=== PATIENT | female | born 1950 | race Caucasian/White ===

== ENCOUNTER 2016-07-29 07:14 | Emergency (ER) | payer OTHER ==
[~2016-07-29] VITALS: Wt 53.0 kg
[~2016-07-29 07:14] MED LIST: AMO500 PO; D-ME473S18 PO; FLUC150T17 PO; HYDR-762 PO; IBUP-1542 PO; IBUP400T22 PO; METH-70 PO; ONDA4TAB35 PO; TRAM-40 PO
--- NOTE | 2016-07-29 07:39 | ERD ---
ER Documentation Chief Complaint Date/Time DATE: 07/29/16 TIME: 07:35 Chief Complaint dysuria and burning for the past 2 days. no distress. no n/v. HPI 66-year-old female comes in with painful urination and urgency for the past 2 days.She states that she has body aches, however no fevers, chills, nausea or vomiting. She denies abdominal pain. ROS All systems reviewed and are negative except as per history of present illness. Medications Home Meds Active Scripts Cephalexin* (Keflex*) 500 Mg Capsule, 500 MG PO TID for 7 Days, CAP Prov:AMY PHILLIPS PA-C 07/29/16 Dextromethorphan Hb-Promethazine Hcl (Promethazine DM Syrup) 473 Ml Syrup, 5 ML PO Q6H Y for COUGH, #4 OZ Prov:CAMILLA CAICEDO MD 03/13/16 Amoxicillin* (Amoxicillin*) 500 Mg Cap, 500 MG PO TID for 10 Days, CAP Prov:CAMILLA CAICEDO MD 03/13/16 Ibuprofen* (Motrin*) 400 Mg Tab, 400 MG PO Q6, #15 TAB Prov:CAMILLA CAICEDO MD 03/13/16 Ondansetron Hcl* (Zofran* ODT) 4 mg -ODT Tab.disper, 4 MG PO Q4H Y for NAUSEA AND OR VOMITING, #10 TAB Prov:ZAHIRA POWERS DO 09/12/15 Ibuprofen* (Motrin*) 600 Mg Tab, 600 MG PO TID, #30 TAB Prov:ELMER POWERSSTSAÚLS ANawaf DO 09/12/15 Methocarbamol* (Robaxin*) 750 Mg Tablet, 750 MG PO TID, #30 TAB Prov:ELMER POWERSSTOLOS ANawaf DO 09/12/15 Hydrocodone Bit-Acetaminophen* ([place]*) 10-325 Mg Tablet, 1 TAB PO Q6 Y for PAIN , #10 TAB Prov:ZAHIRA POWERS DO 09/12/15 Fluconazole* (Diflucan*) 150 Mg Tablet, 150 MG PO ONCE, #1 TAB Prov:CAMILLA CAICEDO MD 08/11/15 Tramadol Hcl* (Ultram*) 50 Mg Tablet, 50 MG PO Q6H Y for PAIN, #14 TAB Prov:CAMILLA CAICEDO MD 08/11/15 Ibuprofen* (Motrin*) 600 Mg Tab, 600 MG PO Q6, #20 TAB Prov:CAMILLA CAICEDO MD 08/11/15 Allergies Allergies: Coded Allergies: No Known Allergy (Unverified , 07/29/16) PMhx/Soc Medical and Surgical Hx: pt denies Medical Hx History of Surgery: Yes (GALLBLADDER REMOVED, HYSTERECTOMY) Anesthesia Reaction: No Hx Neurological Disorder: No Hx Respiratory Disorders: No Hx Cardiac Disorders: No Hx Psychiatric Problems: No Hx Miscellaneous Medical Probl: No Hx Alcohol Use: No Hx Substance Use: No Hx Tobacco Use: No Smoking Status: Never smoker Physical Exam Vitals Vital Signs Date Time Temp Pulse Resp B/P Pulse Ox O2 Delivery O2 Flow Rate FiO2 07/29/16 07:19 98.1 67 21 150/84 98 Physical Exam General: Well-developed, well-nourished. The patient appears in no acute distress. HEENT: Head is normocephalic, atraumatic. No scleral icterus. Neck: Supple. Nontender. Lungs: Clear to auscultation. Normal air movement. Heart: Regular rate and rhythm. S1 and S2 are normal. No murmurs, gallops, or rubs. Abdomen: Soft, nontender, nondistended. Bowel sounds are normoactive. Extremities: No clubbing or cyanosis. Normal pulses. Moving extremities x 4. No weakness. Neurologic: Alert and oriented 3. No focal deficits. Skin: Normal turgor. No rash or lesions. Results 24 hrs Laboratory Tests Test 07/29/16 07:54 Bedside Urine Blood Trace-lysed Bedside Urine Glucose (UA) Negative Bedside Urine Ketones (LAB) Negative Bedside Urine Leukocyte Esterase (L Trace Bedside Urine Nitrite (LAB) Negative Bedside Urine Protein (LAB) Negative Bedside Urine pH (LAB) 5.5 Procedures/MDM 66-year-old female presents with painful urination and urgency for the past 3 days, consistent with a lower urinary tract infection. Patient's abdominal examination is benign, she does not have any history of fever or vomiting to indicate signs of pyelonephritis. She is a well-appearing patient, no signs of sepsis, dehydration, kidney stones, she will be discharged home with oral antibiotics. Patient's blood pressure was elevated (>120/80) but appears stable without evidence of hypertension emergency or urgency. The patient was counseled about the risks of hypertension and urged to pursue outpatient monitoring and therapy within a week with their primary care physician. Departure Diagnosis: Primary Impression: UTI (urinary tract infection) Condition: AMY Puri PA-C Jul 29, 2016 07:39
[2016-07-29 07:51] LABS: URINE BLOOD (Dip) POC Trace-lysed (NEGATIVE)
[2016-07-29] MEDS ORDERED: CEPH-443 PO (07:54)
== END 2016-07-29 08:00 | disposition home or self-care (01) ==
LOC: FTE 07:14
DX: N39.0 Urinary tract infection, site not specified (principal)
CPT/HCPCS: 81003; Z7502; 99283

== ENCOUNTER 2016-08-03 22:35 | Emergency (ER) | payer MEDICAID, OTHER ==
[~2016-08-03] VITALS: Ht 152.4 cm; Wt 54.8 kg
[~2016-08-03 22:35] MED LIST changes: +CEPH-443 PO
[2016-08-03 22:38] VITALS: Ht 152.4 cm; Wt 54.8 kg
[2016-08-04] MEDS ORDERED: SOD CHLORIDE 0.9% 1,000 ML IV STA (00:17)
[2016-08-04] MEDS ORDERED: ONDANSETRON 4 MG INJ IV STA (00:17)
--- NOTE | 2016-08-04 01:13 | ERD ---
ER Documentation Chief Complaint Date/Time DATE: 08/04/16 TIME: 01:12 Chief Complaint PUT ON KEFLEX FOR UTI BUT INCREASED SUPRAPUBIC AND FLANK PAIN HPI 66-year-old female presents here in emergency department for complaints of low abdominal pain and bilateral flank pain for 10 days. Patient was seen here 4 days ago, was diagnosed of a urinary tract infection, is taking Keflex, continue stop the pain. Patient denies that the pain as sharp pain, 6/10 scale, is also complaining of bilateral flank pain. Patient denies any vomiting and fever but is complaining of nausea. Patient denies any blood in the stool or black stool. Patient denies any diarrhea or constipation. Patient denies any blood in the urine. Patient states that the dysuria has resolved. ROS All systems reviewed and are negative except as per history of present illness. Medications Home Meds Active Scripts Cephalexin* (Keflex*) 500 Mg Capsule, 500 MG PO TID for 7 Days, CAP Prov:AMY PHILLIPS PA-C 07/29/16 Dextromethorphan Hb-Promethazine Hcl (Promethazine DM Syrup) 473 Ml Syrup, 5 ML PO Q6H Y for COUGH, #4 OZ Prov:CAMILLA CAICEDO MD 03/13/16 Amoxicillin* (Amoxicillin*) 500 Mg Cap, 500 MG PO TID for 10 Days, CAP Prov:CAMILLA CAICEDO MD 03/13/16 Ibuprofen* (Motrin*) 400 Mg Tab, 400 MG PO Q6, #15 TAB Prov:CAMILLA CAICEDO MD 03/13/16 Ondansetron Hcl* (Zofran* ODT) 4 mg -ODT Tab.disper, 4 MG PO Q4H Y for NAUSEA AND OR VOMITING, #10 TAB Prov:ZAHIRA POWERS ANawaf DO 09/12/15 Ibuprofen* (Motrin*) 600 Mg Tab, 600 MG PO TID, #30 TAB Prov:ELMER POWERSSTSAÚLS A. DO 09/12/15 Methocarbamol* (Robaxin*) 750 Mg Tablet, 750 MG PO TID, #30 TAB Prov:ELMER POWERSSTSAÚLS ANawaf DO 09/12/15 Hydrocodone Bit-Acetaminophen* ([place]*) 10-325 Mg Tablet, 1 TAB PO Q6 Y for PAIN , #10 TAB Prov:ZAHIRA POWERS DO 09/12/15 Fluconazole* (Diflucan*) 150 Mg Tablet, 150 MG PO ONCE, #1 TAB Prov:CAMILLA CAICEDO MD 08/11/15 Tramadol Hcl* (Ultram*) 50 Mg Tablet, 50 MG PO Q6H Y for PAIN, #14 TAB Prov:CAMILLA CAICEDO MD 08/11/15 Ibuprofen* (Motrin*) 600 Mg Tab, 600 MG PO Q6, #20 TAB Prov:CAMILLA CAICEDO MD 08/11/15 Allergies Allergies: Coded Allergies: No Known Allergy (Unverified , 07/29/16) PMhx/Soc History of Surgery: Yes (GALLBLADDER REMOVED, HYSTERECTOMY) Anesthesia Reaction: No Hx Neurological Disorder: No Hx Respiratory Disorders: No Hx Cardiac Disorders: No Hx Psychiatric Problems: No Hx Miscellaneous Medical Probl: No Hx Alcohol Use: No Hx Substance Use: No Hx Tobacco Use: No Smoking Status: Never smoker FmHx Family History: diabetes Physical Exam Vitals Vital Signs Date Time Temp Pulse Resp B/P Pulse Ox O2 Delivery O2 Flow Rate FiO2 08/03/16 22:38 95.7 76 16 142/63 97 Physical Exam GENERAL: The patient is well developed and appropriate for usual state of health, in no apparent distress. CHEST: Clear to auscultation bilaterally. There are no rales, wheezes or rhonchi. HEART: Regular rate and rhythm. No murmurs, clicks, rubs or gallops. No S3 or S4. ABDOMEN: Soft, nontender and nondistended. Good bowel sounds. No rebound or guarding. No gross peritonitis. No gross organomegaly or masses. No Reese sign or McBurney point tenderness. BACK: No midline or flank tenderness. EXTREMITIES: Equal pulses bilaterally. There is no peripheral clubbing, cyanosis or edema. No focal swelling or erythema. Full range of motion. Grossly neurovascularly intact. NEURO: Alert and oriented. Cranial nerves 2-12 intact. Motor strength in all 4 extremities with 5/5 strength. Sensation grossly intact. Normal speech and gait. SKIN: There is no apparent rash or petechia. The skin is warm and dry. HEMATOLOGIC AND LYMPHATIC: There is no evidence of excessive bruising or lymphedema. No gross cervical, axillary, or inguinal lymphadenopathy. Result Diagram: 08/04/16 0056 08/04/16 0056 Results 24 hrs Laboratory Tests Test 08/04/16 00:56 Alanine Aminotransferase (ALT/SGPT) 29IU/L Albumin 4.3g/dl Albumin/Globulin Ratio 0.97 Alkaline Phosphatase 91IU/L Anion Gap 16 Aspartate Amino Transf (AST/SGOT) 29IU/L Basophils # 0.010^3/ul Basophils % 0.6% Blood Urea Nitrogen 9mg/dl Calcium Level 9.7mg/dl Carbon Dioxide Level 26mmol/L Chloride Level 106mmol/L Creatinine 0.65mg/dl Direct Bilirubin 0.00mg/dl Eosinophils # 0.110^3/ul Eosinophils % 1.7% Globulin 4.40g/dl Glucose Level 105mg/dl Hematocrit 43.0% Hemoglobin 14.3g/dl Indirect Bilirubin 0.3mg/dl Lipase 403U/L Lymphocytes # 3.610^3/ul Lymphocytes % 51.5% Mean Corpuscular Hemoglobin 29.9pg Mean Corpuscular Hemoglobin Concent 33.3g/dl Mean Corpuscular Volume 89.8fl Mean Platelet Volume 10.9fl Monocytes # 0.610^3/ul Monocytes % 8.0% Neutrophils # 2.710^3/ul Neutrophils % 38.1% Nucleated Red Blood Cells # 0.010^3/ul Nucleated Red Blood Cells % 0.0/100WBC Platelet Count 24713^3/UL Potassium Level 3.4mmol/L Red Blood Count 4.7910^6/ul Red Cell Distribution Width 13.4% Sodium Level 145mmol/L Total Bilirubin 0.3mg/dl Total Protein 8.7g/dl Urine Bilirubin NEGATIVE Urine Clarity CLEAR Urine Color LT. YELLOW Urine Glucose NEGATIVE% Urine Hemoglobin NEGATIVE Urine Ketones NEGATIVE Urine Leukocyte Esterase NEGATIVE Urine Nitrite NEGATIVE Urine Specific [place] <=1.005 Urine Total Protein NEGATIVE Urine Urobilinogen 0.2 E.U./dL Urine pH 6.0 White Blood Count 7.010^3/ul Current Medications Medications (Trade) Dose Ordered Sig/Young Route PRN Reason Start Time Stop Time Status Last Admin Dose Admin Sodium Chloride (NS) 1,000 ml @ 1,000 mls/hr Q1H STAT IV 08/04/16 00:17 08/04/16 01:16 DC 08/04/16 01:00 Ondansetron HCl 4 mg 4 mg ONCE STAT IV 08/04/16 00:17 08/04/16 00:20 DC Sodium Chloride (NS) 100 ml @ ud STK-MED ONCE .ROUTE 08/04/16 01:54 08/04/16 01:55 DC 08/04/16 02:08 Iohexol (Omnipaque 300mg/ ml) 150 ml STK-MED ONCE .ROUTE 08/04/16 01:54 08/04/16 01:55 DC 08/04/16 02:09 Normal saline IV bolus was given here in emergency department for rehydration, patient tolerated IV fluids. Refuses Zofran. PROCEDURE: CT ABDOMEN/PELVIS WITH CONTRAST CLINICAL INDICATION: 66-year-old female with abdominal pain. TECHNIQUE: The study was performed utilizing a [employer] VCT 64-slice CT scanner. Direct axial sections were obtained through the abdomen and pelvis with the use of 90 cc of Omnipaque-300 nonionic intravenous contrast material. Sagittal and coronal reformations were obtained. Automated exposure control and iterative reconstruction techniques were utilized for this examination. The images were reviewed on a PACS workstation. CTD/vol = 6.1 mGy; Total Exam DLP = 315.7 mGy-cm. COMPARISON: CT abdomen/pelvis September 12, 2015. FINDINGS: The lung bases are unremarkable. There is no evidence for significant pleural effusion. The liver has a normal size and contour without focal areas of abnormal density or contrast enhancement. No intrahepatic nor extrahepatic biliary ductal dilatation is seen. Surgical clips are seen within the gallbladder fossa from prior cholecystectomy. The distal common bile duct measures approximately 6.6 mm. The pancreas is without areas of abnormal attenuation or contrast enhancement. This spleen is identified and has a normal size without abnormal density or contrast enhancement. There is a small ovoid soft tissue density ventral to the spleen adjacent to the a splenic flexure measuring approximately 9 x 8 mm presumably representing a splenule. The adrenal glands are unremarkable. The kidneys are functional bilaterally without abnormal density. No hydroureteronephrosis nor nephroureterolithiasis is evident. The urinary bladder contains urine. There is [id number] retained stool identified within the colon without gross bowel obstruction. There are minimal small diverticula within the descending and proximal sigmoid colon without surrounding inflammatory changes. The appendix is retrocecal and is without edema or surrounding inflammatory reaction. The uterus is not visualized consistent with prior hysterectomy. There is no significant free fluid. The aortoiliac vessels are without aneurysmal dilatation. The osseous structures are intact. IMPRESSION: 1. Status post cholecystectomy. 2. Retained stool without obstruction. 3. No CT evidence for appendicitis. 4. Minimal colonic diverticulosis. 5. Status post hysterectomy. .Manny Silva MD, MD Date Time Electronically viewed and signed by .Manny Silva MD, MD on 08/04/2016 03:51 .M/ CC: SHAW AVERY PER DIEM Procedures/MDM Medical Decision Making: Patient's abdominal pain nonspecific at this time, can be from constipation. No blood in the urine, no urinary tract infection noted. There is low suspicion for abdominal emergencies at this time. Patients abdominal exam is normal at this time. Patients radiology exam does not show any abdominal emergencies at this time. There is low suspicion for appendicitis , cholecystitis, abdominal aortic aneurysms or peritonitis at this time. There is low suspicion for sepsis. Patient appears well and is hemodynamically stable. Disposition: Home. Condition: Stable Prescription MiraLAX, Colace, tramadol Instructions: Patient is advised to take medications as prescribed. Patient is advised to rest, increase fluid intake and high fiber diet, do brat diet for next 1-2 days and progress as tolerated. Patient is advised that if symptoms are worse, severe abdominal pain, uncontrolled vomiting, high fever, severe flank pain, worst signs and symptoms, to return to the emergency department immediately. Otherwise, patient can follow up with primary care doctor in 5-7 days. Departure Diagnosis: Primary Impression: Abdominal pain Abdominal location: lower abdomen, unspecified Qualified Code: R10.30 - Lower abdominal pain Condition: Stable Patient Instructions: Abdominal Pain Additional Instructions: : Patient is advised to take medications as prescribed. Patient is advised to rest, increase fluid intake and high fiber diet, do brat diet for next 1-2 days and progress as tolerated. Patient is advised that if symptoms are worse, severe abdominal pain, uncontrolled vomiting, high fever, severe flank pain, worst signs and symptoms, to return to the emergency department immediately. Otherwise, patient can follow up with primary care doctor in 5-7 days. SHAW AVERY NP Aug 04, 2016 01:13
[2016-08-04 01:24] LABS: ADD SCAN DIFF NO
[2016-08-04 01:28] LABS: BASOPHILS % 0.6 % (0.0-2.0); EOSINOPHILS # 0.1 10^3/ul (0.0-0.5); EOSINOPHILS % 1.7 % (0.0-7.0); HEMOGLOBIN 14.3 g/dl (12.0-16.0); LYMPHOCYTES # 3.6 10^3/ul (0.8-2.9); LYMPHOCYTES % 51.5 % (15.0-51.0); MEAN CORPUSCULAR HEMOGLOBIN 29.9 pg (29.0-33.0); MEAN CORPUSCULAR HGB CONC 33.3 g/dl (32.0-37.0); MEAN CORPUSCULAR VOLUME 89.8 fl (82.0-101.0); MEAN PLATELET VOLUME 10.9 fl (7.4-10.4); MONOCYTE # 0.6 10^3/ul (0.3-0.9); NEUTROPHIL # 2.7 10^3/ul (1.6-7.5); NEUTROPHILS % 38.1 % (39.0-77.0); PLATELET COUNT 330 10^3/UL (140-415); RED BLOOD COUNT 4.79 10^6/ul (4.20-5.40); RED CELL DISTRIBUTION WIDTH 13.4 % (11.5-14.5)
[2016-08-04 01:34] LABS: ADD UMIC NO; URINE BILIRUBIN (Dip) NEGATIVE (NEGATIVE); URINE BLOOD (Dip) NEGATIVE (NEGATIVE); URINE COLOR LT. YELLOW (YELLOW); URINE GLUCOSE (Dip) NEGATIVE (NEGATIVE); URINE KETONES (Dip) NEGATIVE (NEGATIVE); URINE LEUKOCYTE ESTERASE (Dip) NEGATIVE (NEGATIVE); URINE NITRITE (Dip) NEGATIVE (NEGATIVE); URINE TOTAL PROTEIN (Dip) NEGATIVE (NEGATIVE); URINE UROBILINOGEN (Dip) 0.2 E.U./dL (0.1-1.0)
[2016-08-04 01:37] LABS: ALBUMIN 4.3 g/dl (3.3-4.9)
[2016-08-04 01:38] LABS: POTASSIUM 3.4 mmol/L (3.5-5.1)
[2016-08-04 01:39] LABS: CREATININE 0.65 mg/dl (0.44-1.00)
[2016-08-04 01:40] LABS: ALBUMIN/GLOBULIN RATIO 0.97; BILIRUBIN,INDIRECT 0.3 mg/dl (0-1.1); BILIRUBIN,TOTAL 0.3 mg/dl (0.2-1.3); TOTAL PROTEIN 8.7 g/dl (6.1-8.1)
[2016-08-04 01:41] LABS: CALCIUM 9.7 mg/dl (8.4-10.2)
[2016-08-04] MEDS ORDERED: SOD CHLORIDE 0.9% 100 ML ONE (01:54)
[2016-08-04] MEDS ORDERED: IOHEXOL 300MG/ML 150 ML BTL ONE (01:54)
--- NOTE | 2016-08-04 03:52 | RADRPT ---
PROCEDURE: CT ABDOMEN/PELVIS WITH CONTRAST CLINICAL INDICATION: 66-year-old female with abdominal pain. TECHNIQUE: The study was performed utilizing a [employer] VCT 64-slice CT scanner. Direct axia l sections were obtained through the abdomen and pelvis with the use of 90 cc of Omnipaque-300 nonio [place] intravenous contrast material. Sagittal and coronal reformations were obtained. Automated exposu re control and iterative reconstruction techniques were utilized for this examination. The images w ere reviewed on a PACS workstation. CTD/vol = 6.1 mGy; Total Exam DLP = 315.7 mGy-cm. COMPARISON: CT abdomen/pelvis September 12, 2015. FINDINGS: The lung bases are unremarkable. There is no evidence for significant pleural effusion. The liver has a normal size and contour without focal areas of abnormal density or contrast enhancement. No in trahepatic nor extrahepatic biliary ductal dilatation is seen. Surgical clips are seen within the ga llbladder fossa from prior cholecystectomy. The distal common bile duct measures approximately 6.6 m m. The pancreas is without areas of abnormal attenuation or contrast enhancement. This spleen is i dentified and has a normal size without abnormal density or contrast enhancement. There is a small o void soft tissue density ventral to the spleen adjacent to the a splenic flexure measuring approxima tely 9 x 8 mm presumably representing a splenule. The adrenal glands are unremarkable. The kidneys are functional bilaterally without abnormal density. No hydroureteronephrosis nor nephroureterolithi asis is evident. The urinary bladder contains urine. There is [id number] retained stool identified within the colon without gross bowel obstruction. There are minimal small diverticula wit hin the descending and proximal sigmoid colon without surrounding inflammatory changes. The appendix is retrocecal and is without edema or surrounding inflammatory reaction. The uterus is not visualiz ed consistent with prior hysterectomy. There is no significant free fluid. The aortoiliac vessels are without aneurysmal dilatation. The osseous structures are intact. IMPRESSION: 1. Status post cholecystectomy. 2. Retained stool without obstruction. 3. No CT evidence for appendicitis. 4. Minimal colonic diverticulosis. 5. Status post hysterectomy. .Manny Silva MD, MD Date Time Electronically viewed and signed by .Manny Silva MD, on 08/04/2016 03:51 .[place]
[2016-08-04] MEDS ORDERED: POLY17PO6 PO (04:00)
[2016-08-04] MEDS ORDERED: DOCU-144 PO (04:00)
[2016-08-04] MEDS ORDERED: TRAM50TA2 PO (04:00)
[2016-08-04 04:18] VITALS: BP 149/78; PULSE 89; RESP 20; TEMP 98.3
== END 2016-08-04 04:34 | disposition home or self-care (01) ==
LOC: FTE 22:35
DX: R10.30 Lower abdominal pain, unspecified (principal)
CPT/HCPCS: 36415; 74177; 80053; 81003; 83690; 85025; 99285; J2405; J7030; Q9967